=== PATIENT | male | born 1965 | race Caucasian/White ===

== ENCOUNTER → 2019-07-09 | Outpatient (REF) | payer BC, OTHER ==
[2019-07-09 18:47] LABS: APPEARANCE, URINE CLEAR (CLEAR); BACTERIA, URINE AUTO NEGATIVE (NEGATIVE); BILIRUBIN, URINE AUTO NEGATIVE (NEGATIVE); BLOOD, URINE BLOOD 2+ (NEGATIVE); COLOR, URINE YELLOW (YELLOW); GLUCOSE, URINE (UA) AUTO NEGATIVE (NEGATIVE); KETONE, URINE AUTO NEGATIVE (NEGATIVE); LEUKOCYTE ESTERASE, URINE AUTO NEGATIVE (NEGATIVE); MUCUS, URINE SMALL (NEGATIVE); NITRITE, URINE AUTO NEGATIVE (NEGATIVE); PROTEIN, URINE AUTO NEGATIVE (NEGATIVE); RBC, URINE AUTO 17 /HPF (0-3); SPECIFIC GRAVITY URINE AUTO 1.021 (1.002-1.035); SQUAMOUS EPITHELIAL CELL UR AU 0 /HPF (0-6); UROBILINOGEN, URINE AUTO 0.2 mg/dL (0.0-2.0); WBC, URINE AUTO 1 /HPF (0-3)
== END ==
LOC: M SMT 17:23
PROVIDERS: ATTEND Nurse Practitioner Family
DX: R31.9 Hematuria, unspecified (principal)

== ENCOUNTER → 2019-08-04 | Outpatient (CLI) | payer BC ==
[~2019-08-04] MED LIST: ISOVUE-370 76% 100ML VIAL As Ordered ONE
--- NOTE | 2019-08-05 05:56 | REP ---
Clinical: Hematuria. Technique: Axial precontrast, contrast enhanced, and delayed images of the abdomen and pelvis using 100 ml Isovue 370 intravenous contrast material with coronal and sagittal re-formations. Volume rendered 3-D CT urogram obtained post processing. Findings: Evaluation of the urinary tract system demonstrates incidental 8 mm simple right renal cyst and 5 mm left renal cyst. No perinephric stranding, hydroureteronephrosis, nephroureterolithiasis or mass lesion appreciated. Bilateral ureters and bladder are normal. Liver, spleen, pancreas, gallbladder, and bilateral adrenal glands are normal. The enteric system is without obstruction or acute inflammatory process. Normal terminal ileum and appendix identified in the right lower quadrant. Scattered colonic diverticula noted without acute diverticulitis. Pelvis demonstrates normal bladder and age appropriate prostate/seminal vesicles. No ascites. No free air. No adenopathy. Abdominal aorta and vasculature without aneurysm or dissection. Surrounding musculoskeletal structures are intact. Lung bases are clear. Impression: 1. Essentially normal urinary tract system as described above. 2. Few scattered colonic diverticula without acute diverticulitis. 3. No further acute abdominopelvic pathology appreciated. Electronically Signed by Geovanny Hernandez MD 08/05/2019 05:48 A
== END ==
LOC: M RAD 10:22
PROVIDERS: ATTEND Nurse Practitioner Family
DX: R31.9 Hematuria, unspecified (principal); K57.90 Diverticulosis of intestine, part unspecified, without perforation or abscess without bleeding
CPT/HCPCS: 74178; Q9967